=== PATIENT | male | born 1955 | race Caucasian/White ===

== ENCOUNTER 2016-06-29 | Outpatient (CLI) | payer OTHER | END 2016-06-29 15:53 | disposition critical access hospital (66) | CPT/HCPCS: A0425; A0429 ==

== ENCOUNTER 2016-06-29 16:01 | Emergency (ER) | payer OTHER ==
[2016-06-29] MEDS ORDERED: HYDROcod/ACETAM 5/325 MG TABLET PO STA (17:59)
[2016-06-29] MEDS ORDERED: IBUPROFEN 600 MG TABLET PO STA (17:59)
[2016-06-29] MEDS ORDERED: HYDROcod/ACETAM 5/325 MG TABLET ONE (18:03)
[2016-06-29] MEDS ORDERED: IBUPROFEN 600 MG TABLET PO ONE (18:04)
== END 2016-06-29 18:40 | disposition home or self-care (01) ==
DX: S83.8X2A Sprain of other specified parts of left knee, initial encounter (principal); W00.0XXA Fall on same level due to ice and snow, initial encounter; Y92.481 Parking lot as the place of occurrence of the external cause; Y99.0 Civilian activity done for income or pay; I10 Essential (primary) hypertension; Z86.73 Personal history of transient ischemic attack (TIA), and cerebral infarction without residual deficits; Z79.02 Long term (current) use of antithrombotics/antiplatelets
CPT/HCPCS: 1040M; 73564; 99283; A9270

== ENCOUNTER 2016-07-26 16:26 | Inpatient (IN) | payer OTHER ==
[2016-07-26] MEDS ORDERED: HYDROmorphone 1 MG/ML SYRINGE IVP STA ×2 (17:16→20:00)
[2016-07-26] MEDS ORDERED: ONDANSETRON 4 MG/2 ML VIAL IVP STA (17:16)
[2016-07-26] MEDS ORDERED: KETOROLAC 60 MG/2 ML VIAL IVP STA (17:28)
[2016-07-26] MEDS ORDERED: ONDANSETRON 4 MG/2 ML VIAL ONE (17:30)
[2016-07-26] MEDS ORDERED: KETOROLAC 30 MG/ML VIAL ONE (17:30)
[2016-07-26] MEDS ORDERED: IOPAMIDOL-300 100 ML VIAL IVP ONE (18:54)
[2016-07-26] MEDS ORDERED: cefTRIAXone 1 GM in SODIUM CHLORIDE 0.9% MINIBAG 100 ML IV STA (19:08)
[2016-07-26] MEDS ORDERED: metroNIDAZOLE 500 MG/100 ML 100 ML IV ONE (19:08)
[2016-07-26] MEDS ORDERED: cefTRIAXone 1 GM VIAL ONE (19:16)
[2016-07-26] MEDS ORDERED: metroNIDAZOLE 500 MG/100 ML 100 ML ONE (19:44)
[2016-07-26] MEDS ORDERED: PROCHLORPERAZINE 10 MG/2 ML VIAL IVP PRN (19:50)
[2016-07-26] MEDS ORDERED: ONDANSETRON 4 MG/2 ML VIAL IVP PRN (19:50)
[2016-07-26] MEDS ORDERED: SODIUM CHLORIDE FLUSH 0.9% 10 ML SYRINGE IVP PRN (19:50)
[2016-07-26] MEDS: SODIUM CHLORIDE 0.9% 1,000 ML IV SCH (21:15)
[2016-07-26] MEDS: FLUoxetine 10 MG CAPSULE PO SCH (21:16)
[2016-07-26] MEDS: GABAPENTIN 300 MG CAPSULE PO SCH (21:16)
[2016-07-26] MEDS: ATORVASTATIN 10 MG TABLET PO SCH (21:16)
[2016-07-27] MEDS: TEMAZEPAM 15 MG CAPSULE PO PRN ×2 (01:04→23:43)
[2016-07-27] MEDS: metroNIDAZOLE 500 MG/100 ML 100 ML IV SCH ×4 (01:05→19:53)
[2016-07-27] MEDS: ACETAMINOPHEN 325 MG TABLET PO PRN ×4 (04:29→18:48)
[2016-07-27] MEDS: SODIUM CHLORIDE 0.9% 1,000 ML IV SCH ×3 (04:32→16:48)
[2016-07-27] MEDS: HYDROmorphone 1 MG/ML SYRINGE IVP PRN (05:25)
[2016-07-27] MEDS: CIPROFLOXACIN 400 MG/200 ML 200 ML IV SCH ×2 (06:13→18:43)
[2016-07-27] MEDS: GABAPENTIN 300 MG CAPSULE PO SCH ×3 (06:13→21:39)
[2016-07-27] MEDS: SODIUM CHLORIDE FLUSH 0.9% 10 ML SYRINGE IVP SCH ×4 (06:13→21:39)
[2016-07-27] MEDS: PANTOPRAZOLE 40 MG TABLET PO SCH (06:13)
[2016-07-27] MEDS ORDERED: NON FORMULARY MED (Simvastatin [Simvastatin] 20 MG) PO SCH (09:00)
[2016-07-27] MEDS: SACCHAROMYCES BOULARDII 250 MG CAPSULE PO SCH ×2 (09:45→16:49)
[2016-07-27] MEDS: DONEPEZIL 5 MG TABLET PO SCH (09:46)
[2016-07-27] MEDS: CLOPIDOGREL 75 MG TABLET PO SCH (09:46)
[2016-07-27] MEDS: ENOXAPARIN 40 MG/0.4 ML SYRINGE SUBQ SCH (09:47)
[2016-07-27] MEDS: FLUoxetine 10 MG CAPSULE PO SCH ×2 (09:47→21:39)
[2016-07-27] MEDS: POLYETHYLENE GLYCOL 3350 17 GM PACKET PO SCH (09:48)
[2016-07-27] MEDS: LISINOPRIL 5 MG TABLET PO SCH (09:49)
[2016-07-27] MEDS ORDERED: ACETAMINOPHEN 1,000 MG/100 ML 100 ML IV PRN (14:04)
[2016-07-27] MEDS: ATORVASTATIN 10 MG TABLET PO SCH (21:38)
[2016-07-27] MEDS: MEMANTINE 5 MG TABLET PO SCH (21:39)
[2016-07-28] MEDS: metroNIDAZOLE 500 MG/100 ML 100 ML IV SCH ×2 (00:42→05:51)
[2016-07-28] MEDS: SODIUM CHLORIDE 0.9% 1,000 ML IV SCH (02:33)
[2016-07-28] MEDS: GABAPENTIN 300 MG CAPSULE PO SCH ×3 (05:33→21:24)
[2016-07-28] MEDS: PANTOPRAZOLE 40 MG TABLET PO SCH (06:04)
[2016-07-28] MEDS: SODIUM CHLORIDE FLUSH 0.9% 10 ML SYRINGE IVP SCH ×3 (06:09→21:24)
[2016-07-28] MEDS: CIPROFLOXACIN 400 MG/200 ML 200 ML IV SCH (06:45)
[2016-07-28] MEDS: HYDROmorphone 1 MG/ML SYRINGE IVP PRN (07:37)
[2016-07-28] MEDS: ENOXAPARIN 40 MG/0.4 ML SYRINGE SUBQ SCH (08:14)
[2016-07-28] MEDS: FENOFIBRATE 48 MG TABLET PO SCH (08:15)
[2016-07-28] MEDS: FLUoxetine 10 MG CAPSULE PO SCH ×2 (08:15→21:23)
[2016-07-28] MEDS: ASPIRIN EC 81 MG TABLET PO SCH (08:15)
[2016-07-28] MEDS: MEMANTINE 5 MG TABLET PO SCH ×2 (08:15→21:23)
[2016-07-28] MEDS: LISINOPRIL 5 MG TABLET PO SCH (08:15)
[2016-07-28] MEDS: SACCHAROMYCES BOULARDII 250 MG CAPSULE PO SCH ×2 (08:15→17:27)
[2016-07-28] MEDS: CLOPIDOGREL 75 MG TABLET PO SCH (08:15)
[2016-07-28] MEDS: DONEPEZIL 5 MG TABLET PO SCH (08:15)
[2016-07-28] MEDS: POLYETHYLENE GLYCOL 3350 17 GM PACKET PO SCH (08:18)
[2016-07-28] MEDS ORDERED: FLUTICASONE NASAL SPRAY NAS PRN (09:00)
[2016-07-28] MEDS ORDERED: PATIENT OWN MED PO PRN (11:37)
[2016-07-28] MEDS: metroNIDAZOLE 250 MG TABLET PO SCH ×3 (11:58→23:41)
[2016-07-28] MEDS: ATORVASTATIN 10 MG TABLET PO SCH (21:24)
[2016-07-28] MEDS: CIPROFLOXACIN 250 MG TABLET PO SCH (21:24)
[2016-07-28] MEDS: TEMAZEPAM 15 MG CAPSULE PO PRN (23:41)
[2016-07-29] MEDS: ACETAMINOPHEN 325 MG TABLET PO PRN (03:22)
[2016-07-29] MEDS: GABAPENTIN 300 MG CAPSULE PO SCH (05:39)
[2016-07-29] MEDS: metroNIDAZOLE 250 MG TABLET PO SCH (05:43)
[2016-07-29] MEDS: SODIUM CHLORIDE FLUSH 0.9% 10 ML SYRINGE IVP SCH (05:45)
[2016-07-29] MEDS: PANTOPRAZOLE 40 MG TABLET PO SCH (06:23)
[2016-07-29] MEDS: DONEPEZIL 5 MG TABLET PO SCH (08:46)
[2016-07-29] MEDS: FLUoxetine 10 MG CAPSULE PO SCH (08:46)
[2016-07-29] MEDS: MEMANTINE 5 MG TABLET PO SCH (08:46)
[2016-07-29] MEDS: FENOFIBRATE 48 MG TABLET PO SCH (08:46)
[2016-07-29] MEDS: CIPROFLOXACIN 250 MG TABLET PO SCH (08:46)
[2016-07-29] MEDS: CLOPIDOGREL 75 MG TABLET PO SCH (08:46)
[2016-07-29] MEDS: LISINOPRIL 5 MG TABLET PO SCH (08:46)
[2016-07-29] MEDS: SACCHAROMYCES BOULARDII 250 MG CAPSULE PO SCH (08:46)
[2016-07-29] MEDS: ASPIRIN EC 81 MG TABLET PO SCH (08:46)
[2016-07-29] MEDS: POLYETHYLENE GLYCOL 3350 17 GM PACKET PO SCH (08:49)
[2016-07-29] MEDS: ENOXAPARIN 40 MG/0.4 ML SYRINGE SUBQ SCH (08:49)
== END 2016-07-29 10:03 | disposition home or self-care (01) | DRG 392 ==
DX: K57.20 Diverticulitis of large intestine with perforation and abscess without bleeding (principal); I69.351 Hemiplegia and hemiparesis following cerebral infarction affecting right dominant side; I10 Essential (primary) hypertension; G47.00 Insomnia, unspecified; F32.9 Major depressive disorder, single episode, unspecified; D35.01 Benign neoplasm of right adrenal gland; K80.20 Calculus of gallbladder without cholecystitis without obstruction; E78.5 Hyperlipidemia, unspecified; Z79.02 Long term (current) use of antithrombotics/antiplatelets; Z79.899 Other long term (current) drug therapy

== ENCOUNTER 2016-12-13 09:20 | Emergency (ER) | payer OTHER ==
--- NOTE | 2016-12-13 10:30 | ED Physician Documentation ---
History of Present Illness - Stated complaint Stated Complaint: L LEG SWELLING - Chief complaint Chief Complaint: Ext Problem - Additonal information Additional information: hx from pt 61 male s/p moh's surgery LLE now with painful swollen leg same as prior DVT no CP SOA Review of Systems Constitutional: denies: Fever Cardiac: denies: Chest pain / pressure Respiratory: denies: Dyspnea Musculoskeletal: reports: Extremity pain, Extremity swelling Endocrine: denies: Easy bruising / bleeding Immunocompromised: denies: Immunocompromised PD PAST MEDICAL HISTORY - Past Medical History Cardiovascular: Hypertension, High cholesterol Neuro: CVA GI: Colon polyps Derm: Other - Past Surgical History Past Surgical History: Yes General: Bowel surgery Ortho: Other Derm: Skin cancer surgery - Present Medications Home Medications: Ambulatory Orders Medication Instructions Recorded Confirmed Clopidogrel Bisulfate [Plavix] 75 mg PO DAILY 06/29/16 07/27/16 Donepezil [Aricept] 10 mg PO DAILY 06/29/16 07/27/16 FLUoxetine [PROzac] 40 mg PO DAILY 06/29/16 07/27/16 Gabapentin 300 mg PO TID 06/29/16 07/27/16 Lisinopril 10 mg PO DAILY 06/29/16 07/27/16 Pantoprazole [Protonix] 20 mg PO DAILY 06/29/16 07/27/16 Simvastatin 40 mg PO QPM 06/29/16 07/27/16 Aspirin [Aspirin EC] 81 mg PO DAILY 07/27/16 07/27/16 Fenofibrate,Micronized 200 mg PO DAILY 07/27/16 07/27/16 [Fenofibrate] Memantine HCl [Namenda] 10 mg PO BID 07/27/16 07/27/16 Mometasone Furoate [Nasonex] 2 sprays MAR DAILY PRN 07/27/16 07/27/16 Ciprofloxacin HCl 750 mg PO BID #14 tablet 07/29/16 metroNIDAZOLE [Flagyl] 500 mg PO Q6HR #28 tablet 07/29/16 - Allergies Allergies/Adverse Reactions: Allergies Allergy/AdvReac Type Severity Reaction Status Date / Time No Known Drug Allergies Allergy Verified 12/13/16 09:28 - Social History Does the pt smoke?: No Smoking Status: Never smoker Does the pt drink ETOH?: No Does the pt have substance abuse?: No - Immunizations Immunizations are current?: Yes - POLST Patient has POLST: No PD ED PE NORMAL - Vitals Vital signs reviewed: Yes - General General: Alert and oriented X 3 - HEENT HEENT: PERRL - Neck Neck: Supple, no meningeal sign - Cardiac Cardiac: RRR - Respiratory Respiratory: No respiratory distress, Clear bilaterally - Extremities Extremities: Other (surgical site s infection - dep scoop inscision with granuation tissue and serous dc) calf swollen and TTP and midl disolcoration, no cord, MSV intact) Results - Vitals Vitals: Vital Signs - 24 hr 12/13/16 09:26 Temperature 36.5 C Heart Rate 96 Respiratory 14 Rate Blood Pressure 143/88 H O2 Saturation 100 Oxygen O2 Source Room air - Rads (name of study) doppler Radiology: See rad report (no DVT, sup phelobitis) PD MEDICAL DECISION MAKING - ED course ED course: exam not c/w infection but pt cautioned to monitor for inc redness fever streak etc right now sup phelbitis - on plavix, iwill dc and rpt sono in 1 wk to determine if progresses to dVT Departure - Departure Disposition: 01 Home, Self Care Clinical Impression: Superficial thrombophlebitis Qualifiers: Superficial thrombophlebitis-Involved body area: lower extremity Laterality: left Qualified Code(s): I80.02 - Phlebitis and thrombophlebitis of superficial vessels of left lower extremity Condition: Good Instructions: ED Phlebitis Superficial Comments: You do not have a deep blood clot in your legs right now But you do have some superficial blood clots So you do not need to be on coumadin or xarelto at this time Continue your plavix and apply warm compresses to your leg for 20 minutes three times a day, continue to walk and move around as much as possible, elevate your leg when sitting or sleeping Then get a repeat doppler in 1 week to see if the superficial clots have resolved or progressed to be deep clots - your PMD can order this or you can come back and see me in the ER next Tuesday morning Return to the ER id worse in any way in the mean time (more swelling and pain, chest pain, short of breath, fever, redness to the leg etc) And please have your PMD recheck your blood pressure - it was high today
--- NOTE | 2016-12-13 11:19 | Ultrasound Report ---
LEFT LEG VENOUS DUPLEX: 12/13/2016 CLINICAL INDICATION: Leg pain after surgery, history of DVT. TECHNIQUE: Real-time sonographic vascular imaging was performed by the merchandise stocker through the left l ower extremity utilizing both color flow and Doppler spectral analysis. Multiple termite control representative stati c images were saved for review. FINDINGS: A left lower extremity venous sonogram is performed revealing the common femoral, superfici al femoral, profunda femoris, and popliteal veins to be adequately visualized without intraluminal de fects. There is normal venous compression, augmentation, phasicity, and spontaneity of venous flow. I n the calf, the visualized more cephalad portions of posterior tibial and peroneal veins are grossly compressible, without filling defects. There is superficial thrombophlebitis in the calf. IMPRESSION: NO EVIDENCE OF DEEP VENOUS THROMBOSIS. JOB #: [id number] EXT JOB #:
[2016-12-13 12:07] VITALS: BP 139/80
== END 2016-12-13 12:07 | disposition home or self-care (01) ==
LOC: ED 09:20
DX: I80.02 Phlebitis and thrombophlebitis of superficial vessels of left lower extremity (principal); I10 Essential (primary) hypertension; Z86.718 Personal history of other venous thrombosis and embolism; Z85.828 Personal history of other malignant neoplasm of skin; Z79.82 Long term (current) use of aspirin
CPT/HCPCS: 99282; 99283